=== PATIENT | male | born 2000 | race Caucasian/White ===

== ENCOUNTER 2021-06-17 11:26 | Inpatient (IN) | payer OTHER ==
[~2021-06-17] VITALS: Ht 177.8 cm; Wt 84.0 kg
[2021-06-17] MEDS ORDERED: LEXAPRO 10MG10 MG PO (11:59)
[2021-06-17 12:27] LABS: BASO % 0.2 % (0.0-2.0); EOS % 0.2 % (0-4.0); GRAN % 79.3 % (42.2-75.2); HEMATOCRIT 42.3 % (42.0-52.0); LYMPH # 0.6 (1.2-3.4); LYMPH % 7.1 % (20.0-51.0); MEAN CELL VOLUME 87 fl (80.0-100.0); MEAN CORPUSCULAR HEMOGLOBIN 31 pg (27.0-31.0); MEAN CORPUSCULAR HGB CONC 36 g/dl (33.0-37.0); MEAN PLATELET VOLUME 10.8 fl (7.4-10.4); MONO # 1.2 (0.1-0.6); PLATELET COUNT 167 K/mm3 (130-400); RED BLOOD COUNT 4.89 M/mm3 (4.20-5.60); REDCELL DISTRIBUTION WIDTH-CV 12.3 % (11.5-14.5)
[2021-06-17 12:39] LABS: ALBUMIN 4.8 gm/dL (3.5-5.0); BILIRUBIN,TOTAL 1.1 mg/dL (0.0-1.0); C-REACTIVE PROTEIN 1.1 mg/dL (0.0-0.9); CALCIUM 10.2 mg/dL (8.4-10.2); CREATININE, serum 1.93 (0.66-1.25); POTASSIUM 4.4 mmol/L (3.4-5.0); TOTAL PROTEIN 7.5 gm/dL (6.4-8.2)
[2021-06-17 15:11] LABS: COLLECTION METHOD CLEAN CATCH
[2021-06-17 15:17] LABS: MUCOUS Present /lpf; PH 5 (5-8); SQUAMOUS EPITHELIAL 0-2 /hpf; URINE APPEARANCE Clear; URINE BACTERIA None Seen /hpf; URINE BILIRUBIN Negative (NEGATIVE); URINE BLOOD Negative (NEGATIVE); URINE COLOR Straw; URINE GLUCOSE Negative (NEGATIVE); URINE KETONE Negative (NEGATIVE); URINE LEUKOCYTE ESTERASE Negative (NEGATIVE); URINE NITRATE Negative (NEGATIVE); URINE PROTEIN(semi-quant) Negative (NEGATIVE); URINE RBC 0-2 /hpf; URINE UROBILINOGEN Negative (NEGATIVE)
[2021-06-17 18:04] VITALS: BP 121/73; PULSE 81
[2021-06-17 20:02] VITALS: BP 122/74; PULSE 81; TEMP 98.1
[2021-06-17 22:03] LABS: COLLECTION METHOD CLEAN CATCH
[2021-06-17 22:09] LABS: PH 5 (5-8); SQUAMOUS EPITHELIAL 0-2 /hpf; URINE APPEARANCE Clear; URINE BACTERIA None Seen /hpf; URINE BILIRUBIN Negative (NEGATIVE); URINE BLOOD Negative (NEGATIVE); URINE COLOR Straw; URINE GLUCOSE Negative (NEGATIVE); URINE KETONE Negative (NEGATIVE); URINE LEUKOCYTE ESTERASE Negative (NEGATIVE); URINE NITRATE Negative (NEGATIVE); URINE PROTEIN(semi-quant) Negative (NEGATIVE); URINE RBC 0-2 /hpf; URINE UROBILINOGEN Negative (NEGATIVE)
[2021-06-18] VITALS (7 sets, daily range): BP systolic 112–133; BP diastolic 60–75; PULSE 50–70; TEMP 97.4–98.7
[2021-06-18 06:55] LABS: BASO % 0.5 % (0.0-2.0); EOS # 0.1 (0.0-0.7); EOS % 1.2 % (0-4.0); GRAN # 4.7 (1.4-6.5); GRAN % 61.1 % (42.2-75.2); HEMATOCRIT 38.3 % (42.0-52.0); HEMOGLOBIN 13.4 g/dl (13.5-18.0); LYMPH # 1.4 (1.2-3.4); LYMPH % 18.3 % (20.0-51.0); MEAN CELL VOLUME 89 fl (80.0-100.0); MEAN CORPUSCULAR HEMOGLOBIN 31 pg (27.0-31.0); MEAN CORPUSCULAR HGB CONC 35 g/dl (33.0-37.0); MONO # 1.4 (0.1-0.6); MONO % 18.5 % (1.7-9.3); PLATELET COUNT 135 K/mm3 (130-400); RED BLOOD COUNT 4.33 M/mm3 (4.20-5.60); REDCELL DISTRIBUTION WIDTH-CV 12.4 % (11.5-14.5)
[2021-06-18 07:22] LABS: ALBUMIN 3.7 gm/dL (3.5-5.0); BILIRUBIN,TOTAL 0.6 mg/dL (0.0-1.0); CALCIUM 9.1 mg/dL (8.4-10.2); CREATININE, serum 2.28 (0.66-1.25); POTASSIUM 4.3 mmol/L (3.4-5.0)
[2021-06-18 12:09] LABS: CREATININE, serum 2.13 (0.66-1.25)
[2021-06-18 12:19] LABS: FRACTIONAL EXCRETION OF NA+ 1.6 %
[2021-06-18 17:05] LABS: TRICYCLIC ANTIDEPRESS URINE NEGATIVE
[2021-06-19 03:29] VITALS: BP 129/70; PULSE 73; TEMP 98.8
[2021-06-19 07:18] LABS: BASO % 0.4 % (0.0-2.0); EOS # 0.1 (0.0-0.7); EOS % 2.1 % (0-4.0); GRAN # 4.7 (1.4-6.5); GRAN % 68.6 % (42.2-75.2); HEMATOCRIT 37.2 % (42.0-52.0); HEMOGLOBIN 12.8 g/dl (13.5-18.0); LYMPH % 15.3 % (20.0-51.0); MEAN CELL VOLUME 89 fl (80.0-100.0); MEAN CORPUSCULAR HEMOGLOBIN 31 pg (27.0-31.0); MEAN CORPUSCULAR HGB CONC 34 g/dl (33.0-37.0); MEAN PLATELET VOLUME 11.7 fl (7.4-10.4); MONO # 0.9 (0.1-0.6); MONO % 13.3 % (1.7-9.3); PLATELET COUNT 145 K/mm3 (130-400); RED BLOOD COUNT 4.16 M/mm3 (4.20-5.60); REDCELL DISTRIBUTION WIDTH-CV 12.2 % (11.5-14.5)
[2021-06-19 07:37] VITALS: BP 147/63; PULSE 71; TEMP 97.8
[2021-06-19 07:52] LABS: CREATININE, serum 1.91 (0.66-1.25); POTASSIUM 3.9 mmol/L (3.4-5.0)
[2021-06-19 12:00] VITALS: BP 141/75; PULSE 66; TEMP 98.9
[2021-06-19 19:41] VITALS: BP 140/85; PULSE 50; TEMP 98.4
[2021-06-19 23:17] VITALS: BP 136/74; PULSE 50; TEMP 98.3
[2021-06-20 04:31] VITALS: BP 129/63; PULSE 51; TEMP 98.7
[2021-06-20 07:19] LABS: BASO % 0.3 % (0.0-2.0); EOS # 0.2 (0.0-0.7); EOS % 2.5 % (0-4.0); GRAN # 3.9 (1.4-6.5); GRAN % 59.4 % (42.2-75.2); HEMOGLOBIN 12.7 g/dl (13.5-18.0); LYMPH # 1.5 (1.2-3.4); LYMPH % 22.4 % (20.0-51.0); MEAN CELL VOLUME 89 fl (80.0-100.0); MEAN CORPUSCULAR HEMOGLOBIN 31 pg (27.0-31.0); MEAN CORPUSCULAR HGB CONC 35 g/dl (33.0-37.0); MEAN PLATELET VOLUME 11.5 fl (7.4-10.4); MONO % 14.9 % (1.7-9.3); PLATELET COUNT 146 K/mm3 (130-400); RED BLOOD COUNT 4.09 M/mm3 (4.20-5.60); REDCELL DISTRIBUTION WIDTH-CV 12.2 % (11.5-14.5)
[2021-06-20 07:21] LABS: HEMATOCRIT 36.3 % (42.0-52.0)
[2021-06-20 07:41] LABS: CALCIUM 9.2 mg/dL (8.4-10.2); CREATININE, serum 1.56 (0.66-1.25); POTASSIUM 3.8 mmol/L (3.4-5.0)
[2021-06-20 07:54] VITALS: BP 132/78; PULSE 45; TEMP 97.9
[2021-06-20 11:47] VITALS: BP 117/72; PULSE 46; TEMP 98.2
[2021-06-20 15:21] VITALS: BP 138/74; PULSE 51; TEMP 98
[2021-06-20 19:11] VITALS: BP 122/53; PULSE 77; TEMP 97.9
[2021-06-20 23:33] VITALS: BP 114/66; PULSE 57; TEMP 98
[2021-06-21 03:35] VITALS: BP 127/82; PULSE 55; TEMP 98.1
[2021-06-21 07:19] LABS: BASO % 0.6 % (0.0-2.0); EOS # 0.2 (0.0-0.7); EOS % 3.4 % (0-4.0); GRAN % 42.6 % (42.2-75.2); HEMOGLOBIN 12.8 g/dl (13.5-18.0); LYMPH # 1.8 (1.2-3.4); LYMPH % 37.6 % (20.0-51.0); MEAN CELL VOLUME 86 fl (80.0-100.0); MEAN CORPUSCULAR HEMOGLOBIN 32 pg (27.0-31.0); MEAN CORPUSCULAR HGB CONC 37 g/dl (33.0-37.0); MEAN PLATELET VOLUME 11.4 fl (7.4-10.4); MONO # 0.7 (0.1-0.6); PLATELET COUNT 162 K/mm3 (130-400); RED BLOOD COUNT 4.06 M/mm3 (4.20-5.60)
[2021-06-21 07:23] LABS: CALCIUM 9.1 mg/dL (8.4-10.2); CREATININE, serum 1.26 (0.66-1.25); POTASSIUM 3.5 mmol/L (3.4-5.0)
[2021-06-21 07:39] VITALS: BP 127/84; PULSE 48; TEMP 98
[2021-06-21 07:39] LABS: HEMATOCRIT 34.7 % (42.0-52.0)
== END 2021-06-21 10:00 | disposition home or self-care (01) | DRG 392 ==
LOC: COL.ER 11:26 → SURG 16:56
PROVIDERS: Physician Assistant; ADMIT Internal Medicine
DX: R10.9 Unspecified abdominal pain (principal); N17.9 Acute kidney failure, unspecified; F32.9 Major depressive disorder, single episode, unspecified; E86.0 Dehydration
CPT/HCPCS: 99232-AI; 99239; C9113; G0378; J0780; J1170; J1644; J2270; J2405; J7030; J7120

== ENCOUNTER 2024-07-13 16:35 | Emergency (ER) | payer OTHER ==
[~2024-07-13] VITALS: Ht 180.3 cm; Wt 104.5 kg
[~2024-07-13 16:35] MED LIST: LEXAPRO 10MG10 MG PO
[2024-07-13 17:19] LABS: BASO % 0.6 % (0.0-2.0); EOS # 0.2 K/mm3 (0.0-0.7); EOS % 2.4 % (0.0-4.0); GRAN # 3.6 K/mm3 (1.4-6.5); GRAN % 58.3 % (42.2-75.2); HEMATOCRIT 45.9 % (42.0-52.0); HEMOGLOBIN 16.4 g/dl (13.5-18.0); LYMPH # 1.8 K/mm3 (1.2-3.4); LYMPH % 28.7 % (20.0-51.0); MEAN CELL VOLUME 86 fl (80.0-100.0); MEAN CORPUSCULAR HEMOGLOBIN 31 pg (27-31); MEAN CORPUSCULAR HGB CONC 36 g/dl (33.0-37.0); MEAN PLATELET VOLUME 11.8 fl (7.4-10.4); MONO # 0.6 K/mm3 (0.1-0.6); MONO % 9.4 % (1.7-9.3); PLATELET COUNT 183 K/mm3 (130-400); RED BLOOD COUNT 5.31 M/mm3 (4.20-5.60); REDCELL DISTRIBUTION WIDTH-CV 12.6 % (11.5-14.5)
[2024-07-13 17:25] LABS: ALANINE AMINOTRANSFERASE 34 U/L (0-55); ALBUMIN 4.7 g/dL (3.5-5.0); ALKALINE PHOSPHATASE 87 U/L (40-150); ANION GAP 12 mmol/L (7-16); AST,SGOT 28 U/L (5-34); BILIRUBIN,TOTAL 0.6 mg/dL (0.2-1.2); BLOOD UREA NITROGEN 16 mg/dL (9-21); CALCIUM 10.1 mg/dL (8.4-10.2); CHLORIDE 106 mEq/L (98-107); CREATININE, serum 1.04 mg/dL (0.72-1.25); GLUCOSE 105 mg/dL (70-99); SODIUM 140 mEq/L (136-145); TOTAL PROTEIN 7.6 g/dl (6.2-8.1)
[2024-07-13 17:32] LABS: TROPONIN-I < 0.010 ng/mL (0.00-0.033)
[2024-07-13] MEDS ORDERED: MOTRIN 800800 MG/TAB PO (18:01)
[2024-07-13 18:11] VITALS: BP 109/69; PULSE 68; TEMP 98.3
== END 2024-07-13 18:17 | disposition home or self-care (01) ==
LOC: COL.ER 16:35
PROVIDERS: Personal Emergency Response Attendant
DX: R07.9 Chest pain, unspecified (principal); F17.200 Nicotine dependence, unspecified, uncomplicated